=== PATIENT | male | born 1995 | race African-American/Black ===

== ENCOUNTER 2022-03-28 05:50 | Emergency (ER) | payer MEDICAID, SELFPAY ==
--- NOTE | ~2022-03-28 | XR_ITS ---
Indication: Trauma EXAMINATION: Single view pelvis, 2 views right hip, right knee., Cervical spine. Single pelvic image does not demonstrate evidence for fracture. 2 views the right hip does not demonstrate evidence for fracture or dislocation. 4 views of the right knee does not demonstrate acute fracture or dislocation. 4 views of the cervical spine demonstrate some straightening of the normal lordosis. No listhesis or compression injury is seen. No fracture line. XR/XR hip RT w PEL1V IMPRESSION: Multiple studies. No acute finding.
--- NOTE | ~2022-03-28 | XR_ITS ---
Indication: Trauma EXAMINATION: Single view pelvis, 2 views right hip, right knee., Cervical spine. Single pelvic image does not demonstrate evidence for fracture. 2 views the right hip does not demonstrate evidence for fracture or dislocation. 4 views of the right knee does not demonstrate acute fracture or dislocation. 4 views of the cervical spine demonstrate some straightening of the normal lordosis. No listhesis or compression injury is seen. No fracture line. XR/XR knee RT 4V IMPRESSION: Multiple studies. No acute finding.
--- NOTE | ~2022-03-28 | XR_ITS ---
Indication: Trauma EXAMINATION: Single view pelvis, 2 views right hip, right knee., Cervical spine. Single pelvic image does not demonstrate evidence for fracture. 2 views the right hip does not demonstrate evidence for fracture or dislocation. 4 views of the right knee does not demonstrate acute fracture or dislocation. 4 views of the cervical spine demonstrate some straightening of the normal lordosis. No listhesis or compression injury is seen. No fracture line. XR/XR cervical spine 3V IMPRESSION: Multiple studies. No acute finding.
[2022-03-28 05:56] VITALS: BP 104/54; BP 120/72; PULSE 72; PULSE 76; RESP 18; O2SAT 99; BMI 23.5
[2022-03-28 06:03] VITALS: BP 104/54; PULSE 76; RESP 18; O2SAT 99
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
[2022-03-28 07:23] VITALS: BP 107/59; PULSE 61; RESP 14; TEMP 36.9; O2SAT 98
== END 2022-03-28 08:14 | disposition home or self-care (01) ==
PROVIDERS: Emergency Provider Emergency Medicine
DX: S80.01XA Contusion of right knee, initial encounter (principal); S70.01XA Contusion of right hip, initial encounter; V13.4XXA Pedal cycle driver injured in collision with car, pick-up truck or van in traffic accident, initial encounter; Y93.55 Activity, bike riding; Y92.414 Local residential or business street as the place of occurrence of the external cause; Y99.9 Unspecified external cause status
CPT/HCPCS: 72040; 73502; 73564; 99283; 99284

== ENCOUNTER 2022-07-17 11:26 | Outpatient (REF) | payer MEDICAID, SELFPAY ==
--- NOTE | ~2022-07-17 | XR_ITS ---
EXAMINATION: XR CERVICAL SPINE CLINICAL INFORMATION: Pain in the neck since working out. COMPARISON: None available. TECHNIQUE: 5 views of the cervical spine were obtained. FINDINGS: There is mild straightening of cervical lordosis. The vertebral heights, alignment are normal. Is mild loss of C4-C5 disc height. Rest the disc heights are normal. The neural foramina are patent bilaterally and oblique views. No acute fracture or dislocation seen. The prevertebral soft tissues are normal. XR/XR cervical spine 4V IMPRESSION: 1. Mild degenerative disc changes C4-C5 disc level. No visible acute fracture or dislocation seen. 2. Mild straightening of cervical lordosis likely spasm.
== END 2022-07-17 11:27 | disposition home or self-care (01) ==
LOC: HO.HHCX 11:26
PROVIDERS: Visit Provider Emergency Medicine
DX: M54.2 Cervicalgia (principal)
CPT/HCPCS: 72050

== ENCOUNTER 2023-03-04 06:30 | Emergency (ER) | payer MEDICAID, SELFPAY ==
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
[2023-03-04 06:46] VITALS: BP 111/66; PULSE 86; RESP 18; TEMP 36; O2SAT 98; BMI 24.7
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
--- NOTE | 2023-03-04 08:08 | PC.NURSE ---
pt refused ibuprofen. I don't need it
== END 2023-03-04 10:12 | disposition home or self-care (01) ==
PROVIDERS: Emergency Provider Emergency Medicine
DX: S60.221A Contusion of right hand, initial encounter (principal); S40.012A Contusion of left shoulder, initial encounter; S70.02XA Contusion of left hip, initial encounter; M25.512 Pain in left shoulder; M79.641 Pain in right hand; V19.40XA Pedal cycle driver injured in collision with unspecified motor vehicles in traffic accident, initial encounter; Y93.9 Activity, unspecified; Y92.410 Unspecified street and highway as the place of occurrence of the external cause; Y99.9 Unspecified external cause status
CPT/HCPCS: 73030; 73130; 99283

== ENCOUNTER 2023-03-12 11:23 | Outpatient (REF) | payer MEDICAID, SELFPAY ==
--- NOTE | ~2023-03-12 | XR_ITS ---
EXAMINATION: XR HAND, RIGHT CLINICAL INFORMATION: Fall with right hand edema and pain COMPARISON: 03/04/2023 TECHNIQUE: PA, lateral, and oblique views of the right hand. FINDINGS: The bones and soft tissues are normal aside from the presence of some metallic appearing soft tissue foreign bodies in the third digit at the base of the middle phalanx laterally as well as at the DIP joint laterally, unchanged from prior. No new radiopaque foreign bodies. No fracture. Alignment is anatomic. Joint spaces are maintained. No erosions or soft tissue calcifications. XR/XR hand RT min 3V IMPRESSION: 1. No acute fractures or subluxations. 2. Unchanged metallic foreign bodies in the third digit.
== END 2023-03-12 11:24 | disposition home or self-care (01) ==
LOC: HO.HHCX 11:23
PROVIDERS: Visit Provider Internal Medicine
DX: S60.011D Contusion of right thumb without damage to nail, subsequent encounter (principal); W18.30XD Fall on same level, unspecified, subsequent encounter
CPT/HCPCS: 73130

== ENCOUNTER 2023-05-15 10:30 | Outpatient (RCR) | payer OTHER, SELFPAY ==
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
== END 2023-07-16 13:45 | disposition home or self-care (01) ==
LOC: HO.OT 10:30
PROVIDERS: PCP Internal Medicine; Visit Provider Internal Medicine
DX: S60.011D Contusion of right thumb without damage to nail, subsequent encounter (principal)
CPT/HCPCS: 29130; 97035; 97110; 97165; 97530; 97760

== ENCOUNTER 2023-06-24 10:00 | Outpatient (RCR) | payer OTHER, SELFPAY ==
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
--- NOTE | 2023-06-24 11:29 | MHC.PT.DC ---
[facility] [place] Office [place] Office [place] Office [address] Devaughn Jackson [address] [phone] F: [phone] F: [phone] F: [phone] F: [phone] Physical Therapy Discharge Report Diagnosis: L shoulder injury Date of Surgery: Date of Evaluation: 05/29/23 Date of Discharge: 06/24/23 Treatments to Date: 6 Cancellations to Date: No Shows to Date: Discharge Status: Achieved Goals Improved Function Independent with HEP Discharge Summary: Pt has met all goals in POC. Added prone periscap stabilization exercises lying over a physioball with recommendation to complete these in addition to standing pulleys to maximize shoulder stability. Pt required additional education to avoid exercises that cause discomfort or makes his shoulder feel unstable, pt in agreement. SPADI improved to 25 points: D/C score 41/130, IE score: 66/130D/C to HEP at this time, patient in agreement with D/C. Thank you for this referral. Electronically signed by: Suni Serrato PT, DPT Please sign and return to therapist. Thank you for your referral.
== END 2023-06-24 11:30 | disposition home or self-care (01) ==
LOC: HO.PT 10:00
PROVIDERS: PCP Internal Medicine; Visit Provider Internal Medicine
DX: S60.011D Contusion of right thumb without damage to nail, subsequent encounter (principal); S43.492D Other sprain of left shoulder joint, subsequent encounter
CPT/HCPCS: 97110; 97140; 97161; 97530

== ENCOUNTER 2023-07-11 22:50 | Emergency (ER) | payer MEDICAID, SELFPAY ==
--- NOTE | 2023-07-11 | ECG_ITS ---
Test Reason : CHEST PAIN Blood Pressure : / mmHG Vent. Rate : 055 BPM Atrial Rate : 055 BPM P-R Int : 140 ms QRS Dur : 102 ms QT Int : 390 ms P-R-T Axes : 054 063 022 degrees QTc Int : 373 ms Sinus bradycardia with sinus arrhythmia Otherwise normal ECG When compared with ECG of 19-JAN-2012 13:23, Inverted T waves have replaced nonspecific T wave abnormality in Inferior leads QT has shortened Referred By: Generic ED Physician Electronically Signed By:Tadeo Diop
[2023-07-11 23:02] VITALS: BP 116/69; PULSE 56; RESP 18; TEMP 36.8; O2SAT 98; BMI 23.0
[2023-07-11 23:07] LABS: MANUAL DIFF FLAG NO
[2023-07-11 23:08] LABS: Basophils Percent Auto 0.3 % (0-2); Eosinophils Absolute Auto 0.1 X10*3/uL (0.0-0.4); Eosinophils Percent Auto 1.1 % (0-4); Hematocrit 39.1 % (42.0-52.0); Hemoglobin 12.8 g/dl (14.0-18.0); Imm Gran Abs Auto 0.01 X10*3/uL (0.00-0.03); Imm Gran Pct Auto 0.1 % (0.0-0.4); Lymphocytes Absolute Auto 1.9 X10*3/uL (1.2-4.9); Lymphocytes Percent Auto 26.6 % (20-40); Mean Corpuscular HGB Conc 32.7 g/dl (31.0-36.0); Mean Corpuscular Hemoglobin 27.4 pg (27.0-33.0); Mean Corpuscular Volume 83.5 fL (80.0-98.0); Mean Platelet Volume 10.1 fL (9.4-12.4); Monocytes Absolute Auto 0.5 X10*3/uL (0.1-1.2); Monocytes Percent Auto 7.1 % (2-11); Neutrophils Absolute Auto 4.6 x10*3/uL (2.0-8.3); Neutrophils Percent Auto 64.8 % (45-73); Platelet Count 226 X10*3/uL (160-400); Red Blood Count 4.68 X10*6/uL (4.60-5.80); Red Cell Distribution Width 13.4 % (11.0-16.0)
[2023-07-11 23:14] LABS: INTERNATIONAL NORM RATIO 1.1 (0.9-1.1); Prothrombin Time 13.2 SEC (11.1-13.3)
[2023-07-11 23:22] LABS: Alanine Aminotransferase 10 U/L (0-40); Albumin Level 4.2 g/dL (3.5-5.0); Alkaline Phosphatase 69 U/L (39-117); Anion Gap 14 (12-20); Aspartate Amino Transferase 16 U/L (5-37); Bilirubin Total 0.4 mg/dL (0.0-1.0); Blood Urea Nitrogen 20 mg/dL (9-16); Calcium 9.2 mg/dL (8.4-10.2); Carbon Dioxide 23 mmol/L (22-29); Chloride 108 mmol/L (96-108); Creatinine Clr Calc Pharmacy 140.2; Estimated Glomerular Filt Rate > 60; Glucose Random 115 mg/dL (60-115); Potassium 4.3 mmol/L (3.3-5.1); Sodium 141 mmol/L (135-145); Total Protein 6.6 g/dL (6.5-8.0)
[2023-07-11 23:45] LABS: Troponin-I High Sensitivity < 2.7 ng/L (<3.5-35.0)
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
[2023-07-12 01:31] VITALS: BP 103/52; PULSE 46
[2023-07-12 01:32] VITALS: BP 113/59; PULSE 51
[2023-07-12 01:33] VITALS: BP 115/67; PULSE 52
[2023-07-12 02:27] VITALS: BP 115/67; PULSE 52; RESP 18; TEMP 36.8; O2SAT 98
== END 2023-07-12 02:10 | disposition home or self-care (01) ==
PROVIDERS: Emergency Provider Emergency Medicine; PCP Internal Medicine
DX: R07.89 Other chest pain (principal)
CPT/HCPCS: 36415; 80053; 84484; 85025; 85610; 93005; 99283

== ENCOUNTER → 2023-07-11 22:50 | Outpatient (BNV) | payer OTHER, SELFPAY | PROVIDERS: Emergency Provider Emergency Medicine; PCP Internal Medicine; Visit Provider Internal Medicine Cardiovascular Disease | DX: R07.9 Chest pain, unspecified (principal) | CPT/HCPCS: 93010 ==

== ENCOUNTER → 2023-09-26 11:12 | Outpatient (BNVA) | payer SELFPAY | PROVIDERS: PCP Internal Medicine; Visit Provider Physician Assistant | DX: S51.811A Laceration without foreign body of right forearm, initial encounter (principal); W25.XXXA Contact with sharp glass, initial encounter | CPT/HCPCS: 99203 ==

== ENCOUNTER → 2023-10-01 07:43 | Outpatient (BNVA) | payer OTHER, SELFPAY | PROVIDERS: PCP Internal Medicine; Visit Provider Physician Assistant Medical | DX: S51.811A Laceration without foreign body of right forearm, initial encounter (principal); W25.XXXA Contact with sharp glass, initial encounter | CPT/HCPCS: 99213 ==

== ENCOUNTER 2024-03-17 13:03 | Outpatient (REF) | payer OTHER, SELFPAY ==
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
--- OUTSIDE RECORDS SUMMARY | 2024-03-17 14:01 | XMS_ITS | Encounter Summary ---
Author Organization [employer] Address [address] [facility] 7 [place] [address] Care Team Providers Care Repairer Handtools Name Role Phone Shayla Castillo MD Primary Care Provider + Encounter Details Date Type Department Care Team ([facility] st Contact Info) Description 03/11/2023 Telephone [facility] MEDICINE [address] [place] [address] Shayla Castillo MD [address] [place] [address] Social History Tobacco Use Types Packs/Day Years [...] AM EDT documented as of this encounter Plan of Treatment Not on file documented as of this encounter Visit Diagnoses Not on filedocumented in this encounter Care Teams Repairer Handtools Relationship Specialty Start Date End Date Shayla Castillo MD [address] [place] [phone] PCP - General Family Medicine 10/16/18 documented as of this encounter
--- OUTSIDE RECORDS SUMMARY | 2024-03-17 14:01 | XMS_ITS | Encounter Summary ---
Author Organization [employer] Address [address] [facility] 7t [place] [address] Care Team Providers Care Precision Honing Machine Operator Name Role Phone Shayla Castillo MD Primary Care Provider + Encounter Details Date Type Department Care Team (Late st Contact Info) Description 03/17/2024 9:00 AM EST Office Visit [facility] [address] [place] [address] Karina Peterson MD [address] [place] [address] Swollen lymph nodes (Primary Dx); Upper respiratory tract infection, unspecified type Social History Tobacco Use Types Packs/Day Years [...] AM EDT documented as of this encounter Last Filed Vital Signs Vital Sign Reading [...] Mass Index 24.34 03/17/2024 9:16 AM EST documented in this encounter Progress Notes * Karina Peterson MD - 03/17/2024 9:00 AM EST Subjective Patient ID: Alistair Uriostegui is a 28 y.o. male with past medical history of low back pain anddepression who presents to walk in clinic for concern of lymph node. Pt reports he woke up and noticed he has a swollen lymph node in his neck. He denies any sore throat or cough. Pt does note he has been having rhinorrhea only at night the past couple nights. He reports he had all his vaccinations as a child. He reports fever this morning and feeling achy all over.Denies recent travel or sick contacts. Review of Systems Constitutional: Negative for fever and unexpected weight change. HENT: Positive for postnasal drip and rhinorrhea. Respiratory: Negative for shortness of breath. Cardiovascular: Negative for chest pain. Gastrointestinal: Negative for abdominal pain. Genitourinary: Negative for difficulty urinating. Objective Visit Vitals BP 126/70 (BP Location: Left arm, Patient Position: Sitting, BP Cuff Size: Adult) Pulse 97 Temp 99.1 ??F (37.3 ??C) (Oral) Resp 20 Body mass index is 24.34 kg/m??. Physical Exam Constitutional: Appearance: Normal appearance. HENT: Nose: Congestion and rhinorrhea present. Rhinorrhea is clear. Mouth/Throat: Mouth: Mucous membranes are moist. Dentition: Normal dentition. No gum lesions. Pharynx: Uvula midline. Postnasal drip present. No pharyngeal swelling or posterior oropharyngeal erythema. Cardiovascular: Rate and Rhythm: Normal rate and regular rhythm. Heart sounds: Normal heart sounds. Pulmonary: Effort: Pulmonary effort is normal. Breath sounds: Normal breath sounds. Abdominal: General: Abdomen is flat. Palpations: Abdomen is soft. Tenderness: There is no abdominal tenderness. Musculoskeletal: Cervical back: Normal range of motion and neck supple. Lymphadenopathy: Cervical: Cervical adenopathy (warm, tender, mobile, about 4cm) present. Left cervical: Superficial cervical adenopathy present. Skin: General: Skin is warm and dry. Comments: Feels feverish Neurological: Mental Status: He is alert. Mental status is at baseline. Psychiatric: Behavior: Behavior normal. Problem List Items Addressed This Visit Swollen lymph nodes - Primary Large, significant left cervical lymphadenopathy. Not deep. Very convincing for acute infection. Swabs negative, ordered viral panel to evaluate more extensively. -advised pt to return if lymph node stays swollen >1 week. Relevant Orders POCT Rapid Strep A MCCARTHY ID NOW (Completed) POCT Rapid Covid-19 BinaxNOW (Completed) POCT Rapid Influenza A MCCARTHY ID NOW POCT Rapid Influenza B MCCARTHY ID NOW Upper respiratory tract infection Covid, Flu and Strep negative. No evidence of respiratory distress. Symptoms moderate. No evidence of dehydration. Feels feverish on exam and significant swollen cervical lymphadenopathy that is concern for acute infection. -Ordered viral respiratory panel 03/17/24. Will call with results. -Supportive care advised. -Isolation recommendations discussed. -Recommended teas, honey with hot water and lemon and lots of fluids. Relevant Medications ibuprofen 800 MG tablet Other Relevant Orders Respiratory Viral Panel PCR -No evidence of acute disease process. Swabs negative. Suspect acute upper respiratory infection. Symptoms moderate. -Sent out viral respiratory panel. -ER precautions discussed. -Seek medical attention for worsening symptoms. I, Alicia Davey, am serving as a scribe to document services personally performed by Dr. Abreu, based on the patient's response to questions by provider and providers statements to me. documented in this encounter Miscellaneous Notes * Assessment & Plan Note - Alicia Davey - 03/17/2024 9:49 AM ESTAssociated Problem(s): Swollen lymph nodes Large, significant left cervical lymphadenopathy. Not deep. Very convincing for acute infection. Swabs negative, ordered viral panel to evaluate more extensively. -advised pt to return if lymph node stays swollen >1 week. * Assessment & Plan Note - Alicia Davey - 03/17/2024 9:47 AM ESTAssociated Problem(s): Upper respiratory tract infection Covid, Flu and Strep negative. No evidence of respiratory distress. Symptoms moderate. No evidence of dehydration. Feels feverish on exam and significant swollen cervical lymphadenopathy that is concern for acute infection. -Ordered viral respiratory panel 03/17/24. Will call with results. -Supportive care advised. -Isolation recommendations discussed. -Recommended teas, honey with hot water and lemon and lots of fluids. documented in this encounter Plan of Treatment Scheduled Orders Name Type Priority Associated Diagnoses Orde r Schedule Respiratory Viral Panel PCR Lab Routine Upper respiratory tract infection, unspecified type Ordered: 03/17/2024 documented as of this encounter Procedures Procedure Name Priority Date/Time Associated Diagnosis Comments POCT INFLUENZA B (ID NOW RAPID MOLECULAR) Routine 03/17/2024 9:56 AM EST Swollen lymph nodes POCT INFLUENZA A (ID NOW RAPID MOLECULAR) Routine 03/17/2024 9:55 AM EST Swollen lymph nodes POC MCCARTHY ID NOW STREP A Routine 03/17/2024 9:36 AM EST Swollen lymph nodes POCT RAPID COVID ANTIGEN Routine 03/17/2024 9:36 AM EST Swollen lymph nodes documented in this encounter Results * POCT Rapid Influenza B MCCARTHY ID NOW (03/17/2024 9:56 AM EST) Pathologist [facility] Influenza B Negative Negative, Indeterminate [facility] QC Media Lot # [id number] [facility] Lot# Expiration Date [facility] Swab 03/17/2024 9:56 AM EST Karina Peterson MD POINT OF CARE TEST ENTER/E DIT ORDERABLES Final Result Performing Organization Address City/[facility]/ZIP Co de Phone Number [facility] [address] [place] [phone] * POCT Rapid Influenza A MCCARTHY ID NOW (03/17/2024 9:55 AM EST) [facility] Influenza A Negative Negative, Indeterminate [facility] QC Media Lot # [id number] [facility] Lot# Expiration Date [facility] Swab 03/17/2024 9:55 AM EST Karina Peterson MD POINT OF CARE TEST ENTER/E DIT ORDERABLES Final Result Performing Organization Address City/[facility]/ZIP Co de Phone Number [facility] [address] [place] [phone] * POCT Rapid Covid-19 BinaxNOW (03/17/2024 9:36 AM EST) Rapid COVID Ag Negative QC Media Lot # [id number] Lot# Expiration Date ,132 Swab 03/17/2024 9:36 AM EST us Karina Peterson MD POINT OF CARE TEST ENTER/E DIT ORDERABLES Final Result * POCT Rapid Strep A MCCARTHY ID NOW (03/17/2024 9:36 AM EST) Rapid Strep A Screen Negative Negative, None Detected QC Media Lot # [id number] Lot# Expiration Date ,026 Swab 03/17/2024 9:36 AM EST us Karina Peterson MD POINT OF CARE TEST ENTER/E DIT ORDERABLES Final Result documented in this encounter Visit Diagnoses Diagnosis Swollen lymph nodes- Primary Enlargement of lymph nodes Upper respiratory tract infection, unspecified type documented in this encounter Additional Health Concerns Assessment Noted Time PHQ-9 Depression Total Score: 10 024 3:04 PM EST documented as of this encounter Care Teams Precision Honing Machine Operator Relationship Specialty Start Date End Date Shayla Castillo MD [address] [place] [phone] PCP - General Family Medicine 10/16/18 documented as of this encounter
[2024-03-17 15:04] LABS: Adenovirus PCR Not Detected (Not Detect.); Bordetella parapertussis PCR Not Detected (Not Detect.); Bordetella pertussis PCR Not Detected (Not Detect.); Chlamydia pneumoniae PCR Not Detected (Not Detect.); Coronavirus 229E PCR Not Detected (Not Detect.); Coronavirus HKU1 PCR Not Detected (Not Detect.); Coronavirus NL63 PCR Not Detected (Not Detect.); Coronavirus OC43 PCR Not Detected (Not Detect.); Human metapneumovirus PCR Not Detected (Not Detect.); Influenza A PCR Not Detected (Not Detect.); Influenza B PCR Not Detected (Not Detect.); Mycoplasma pneumoniae PCR Not Detected (Not Detect.); Parainfluenza 1 PCR Not Detected (Not Detect.); Parainfluenza 2 PCR Not Detected (Not Detect.); Parainfluenza 3 PCR Not Detected (Not Detect.); Parainfluenza 4 PCR Not Detected (Not Detect.); RSV PCR Not Detected (Not Detect.); Rhino/Enterovirus PCR Not Detected (Not Detect.)
[2024-03-17 15:11] LABS: SARS-CoV-2 PCR Not Detected (Not Detect.)
== END 2024-03-17 13:04 | disposition home or self-care (01) ==
LOC: HO.HHCLNP 13:03
PROVIDERS: Visit Provider Family Medicine
DX: J06.9 Acute upper respiratory infection, unspecified (principal)
CPT/HCPCS: 87633

== ENCOUNTER 2024-05-03 17:16 | Emergency (ER) | payer MEDICAID, SELFPAY ==
--- NOTE | ~2024-05-03 | XR_ITS ---
CLINICAL HISTORY: pain s p injury 3 view left ankle Comparison: None Findings: No acute fractures or dislocations. No significant loss of joint space, osteophytes, or erosions. No ankle effusion. Mild soft tissue edema laterally. No radiopaque foreign body. IMPRESSION: Mild soft tissue edema without evidence of fracture This document has been electronically signed by: Nadeem العلي MD on 05/03/2024 18:50:53
--- NOTE | 2024-05-03 17:32 | ED_ITS ---
HPI - Extremity Injury (Lower) General Chief Complaint: Extremity Injury, Lower Stated Complaint: lft ankle injury [facility] Time Seen by Provider: 05/03/24 18:26 Source: patient Mode of arrival: wheelchair Limitations: no limitations History of Present Illness ED Provider: Panchito Lomeli PA-C HPI Narrative: 28 yo male presents to the ER for evaluation of left lateral ankle pain and sw elling after he landed wrong 1 hour ago while at the [facility] in the mall. unable to ambulate since. no foot pain he reports pain is in the outside portion of the ankle, worse with movement, pa lpation and weight bearing. flavoring oil filterer came to evaluate him but he declined transport and drove here. complaint: ankle injury Onset (ago): minute(s) Type of Injury: inversion Place: other ([facility]) Severity: severe Relieving factors: immobilization Exacerbating factors: weight bearing, movement and palpation Context: jumping Associated symptoms: unable to bear weight Other symptoms: none Related Data Previous Rx's ?Medication ?Instructions ?Recorded ibuprofen 600 mg tablet 600 mg PO Q8H PRN fever or pain 05/03/24 #10 tabs Allergies Allergy/AdvReac Type Severity Reaction Status Date / Time methylphenidate AdvReac Unknown Verified 05/03/24 17:35 [From [employer]] Review of Systems Review of Systems: Yes all other systems are reviewed and are negative [facility] Past Medical History Surgical History History of tonsillectomy Social History Social History Alcohol intake: never Advance Directives: No Advance Directives Information Provided: No Physical Exam Vital Signs: Vital Signs: Last Vital Signs Temp 97.7 F 05/03/24 17:33 Pulse 76 05/03/24 17:33 Resp 16 05/03/24 17:33 BP 113/46 L 05/03/24 17:33 Pulse Ox 100 05/03/24 17:33 O2 Del Method Room Air 05/03/24 17:33 BMI result Body Mass Index 22.7 Appearance: Alert. Oriented X3. No acute distress. HEENT: normal inspection CVS: Normal heart rate and rhythm. Pulses normal. Respiratory: No respiratory distress. Skin: Skin warm and dry. Normal skin color. Normal skin turgor. No rashes. Extremities: left lateral ankle with mild swelling, pain with dorsiflexion and plantarflexsion. nontender foot. nontender anterior gill, no calf tenderness. no medial ankle tenderness Neuro: Oriented X 3. NV intact in the left foot Medical Decision Making Medical Decision Making MDM Narrative: 28 yo male presenting to the ER for evaluation of left ankle pain after he injured it while jumping at the [employer] park today no gross deformity. unale to ambulate XR without acute fracture will treat for sprain with blanka wrap, R.I.C.E, NSAID, crutches - outpatient follow up PRN. stable for d/c home Differential Diagnosis Differential Diagnoses: The differential diagnosis associated with the presentation includes ankle sprain, ankle fracture, ankle contusion, foot sprain, foot fracture Independent Interpretation I performed an independent interpretation of an: Plain X-Ray Interpretation: no appreciated fracture in the ankle or foot Radiology Impression Discussion of test interpretation with radiology: I have reviewed the radiologist's reading. External Record Review External record reviewed: Prior outpatient labs Prescription Management I considered prescription management with: Pain Medication Critical Care Time Critical Care Time Critical Care Time: No Discharge Plan Discharge Clinical Impression: Ankle sprain and strain Patient Disposition: Home, Self-Care Instructions: Ankle Sprain (DC) Additional Instructions: Your x-ray today did not show any broken bones. Rest your ankle and elevate your foot when possible. Recommend BLANKA wrap for support and compression. Use ice several times per day for the next 48 hours. You may bear weight as tolerated. If pain is too severe, use crutches until better. Take Motrin and/or Tylenol as needed for pain. Follow up with your doctor as needed. If no improvement in 2 weeks, follow up with Orthopedics for further evaluation and treatment. Prescriptions: New ibuprofen 600 mg tablet 600 mg PO Q8H PRN (Reason: fever or pain) Qty: 10 0RF Referrals: [facility] Orthopedic Surgeons [Provider Group] Shayla Castillo MD [Primary Care Provider] - Stand Alone Forms: Work/School Release Print Language: Belarusian
[2024-05-03 17:33] VITALS: BP 113/46; PULSE 76; RESP 16; TEMP 36.5; O2SAT 100; BMI 22.7
[2024-05-03 19:18] VITALS: BP 109/59; PULSE 65; RESP 18; TEMP 36.7; O2SAT 100
--- NOTE | 2024-05-03 19:20 | MHC.EDTECH ---
This tech took over care of pt at 1900,rounded and introduced self to patient,ha wrap applied to left ankle,pt tolerated well,previous tech gave pt crutches,vitals taken, pt is waiting for discharge at this time,pt appears comfortable,call cruz in reach
--- NOTE | 2024-05-03 19:31 | MHC.EDTECH ---
This tech took over care of pt at 1900,rounded and introduced self to pt,vitals taken,oral temp 99.9,RN aware, pt is waiting to be discharged at this time,call cruz in reach
[2024-05-03 19:36] VITALS: BP 109/59; PULSE 65; RESP 18; TEMP 36.7; O2SAT 100
== END 2024-05-03 19:36 | disposition home or self-care (01) ==
PROVIDERS: Emergency Provider Emergency Medicine; PCP Internal Medicine
DX: S93.402A Sprain of unspecified ligament of left ankle, initial encounter (principal); S96.912A Strain of unspecified muscle and tendon at ankle and foot level, left foot, initial encounter; X50.1XXA Overexertion from prolonged static or awkward postures, initial encounter; Y93.44 Activity, trampolining; Y92.39 Other specified sports and athletic area as the place of occurrence of the external cause; Y99.9 Unspecified external cause status
CPT/HCPCS: 73610; 99283

== ENCOUNTER → 2024-05-03 17:32 | Outpatient (BNV) | payer MEDICAID, SELFPAY | PROVIDERS: Emergency Provider Emergency Medicine; PCP Internal Medicine; Visit Provider Radiology Vascular & Interventional Radiology | DX: M25.572 Pain in left ankle and joints of left foot (principal) | CPT/HCPCS: 73610 ==

== ENCOUNTER 2024-05-21 15:02 | Outpatient (AMB) | payer MEDICAID, SELFPAY ==
--- NOTE | 2024-05-21 15:03 | MHC.OFFVIS ---
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 Patient was at a trampoline park with his daughter and he went on a hike the day after and he felt his ankle roll and caused him a lot of pain. Patient was on crutches for 4 days and after he started movement. He is getting better but he gets flair ups of pain when he works. Patient has tried turmeric curcumin capsules for the inflammation which gave him relief. 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 He reports that he went on a long hike a few days prior to the injury and feels like his ankle was fatigued. While at a [employer] park on May 03, 2024, he sustained an inversion injury resulting in pain on the lateral side of the ankle, which was aggravated by weightbearing and palpation, consequently limiting his ability to bear weight. Initial management in the emergency department involved negative X-ray findings for acute fractures or dislocations, and an Santosh wrap was provided. In the days following, the patient reported ongoing soreness and fatigue, with pain intensifying after prolonged periods on his feet, and notable swelling at work. The discomfort is localized along the bone of the left ankle, with pressure exacerbating the condition, particularly toward the anterior aspect of the joint during heavy stepping, while showing some reduction during rest. 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 Patient is able to demonstrate dorsiflexion, plantar flexion, pronation and supination. Negative anterior drawer. Sensation intact. Pedal Pulse intact. Assessment & Plan Assessment & Plan (1) Left ankle sprain: Code(s): S93.402A - Sprain of unspecified ligament of left ankle, initial encounter Category: Medical Plan The treatment plan for the left ankle sprain includes the introduction of a lace-up ankle brace to stabilize the joint during activities and mitigate recurrent inversion injuries. A structured physical therapy regimen will concentrate on strengthening stabilization and proprioception to aid recovery. The patient's high activity level and history of ankle injuries suggest a personalized rehabilitation strategy, prompting a follow-up in six weeks to evaluate therapeutic outcomes. The patient is informed about the variable nature of swelling during recovery and the critical role of pain management, alongside resting and elevating when necessary. 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 Progress will be monitored with instructions to query any concerning developments. X-rays of the left ankle which were obtained on 05/03/2024 that were obtained in the ED were reviewed by me, Jordana Hunt PA-C, and demonstrated no acute fracture dislocation. Patient was informed and verbally consented to the use of an ambient scribe for clinic note documentation during this visit. Orders: Orders PT Evaluation and Treatment 05/21/24 S93.402A - Sprain of unspecified ligament of left ankle, initial encounter Coding Level of Care Code New Pt Level 3 (91796) Diagnoses Left ankle sprain S93.402A
--- OUTSIDE RECORDS SUMMARY | 2024-05-21 16:35 | XMS_ITS | Encounter Summary ---
Author Organization [employer] Address [address] [facility] 7 [place] [address] Care Team Providers Care Network Support Engineer Name Role Phone Shayla Castillo MD Primary Care Provider + Encounter Details Date Type Department Care Team ([facility] st Contact Info) Description 03/11/2023 Telephone [facility] MEDICINE [address] [place] [address] Shayla Castillo MD [address] [place] [address] Social History Tobacco Use Types Packs/Day Years [...] on filedocumented in this encounter Care Teams Network Support Engineer Relationship Specialty Start Date End Date Shayla Castillo MD [address] [place] [phone] PCP - General Family Medicine 10/16/18 documented as of this encounter
--- OUTSIDE RECORDS SUMMARY | 2024-05-21 16:35 | XMS_ITS | Clinical Summary ---
Author Organization [employer] Address [address] [place] [address] 7t [place] [address] Care Team Providers Care Legal Office Administrator Name Role Phone Shayla Castillo MD Primary Care Provider + Allergies Active Allergy Reactions Criticality Noted Date Comments Methylphenidate 12/23/2019 Other reaction(s): Weight loss Medications * This document contains information received from the source organization and may not represent a complete record from that organization. acetaminophen (Tylenol Extra Strength) 500 MG tabletIndicatio ns:COVID-19 Take 1 or 2 tablets by mouth every 8 hours as needed for fever or pain 30 tablet 09/10/2022 Active cyclobenzaprine (Flexeril) 10 MG tablet Take 1 tablet (10 mg) by mouth 2 times daily for 10 days. 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 Reports being sober for more than 3y now, not on nay opiate replacement rx. FU prn Encounters Date Type Department Care Team Description 05/04/2024 Telephone [facility] [address] [place] [address] Rosanna Sunshine, RN Results 05/03/2024 Orders Only [facility] External Provider, [facility] 03/17/2024 9:00 AM EST Office Visit [facility] [address] [place] [address] Karina Peterson MD Swollen lymph nodes (Primary Dx); Upper respiratory tract infection, unspecified type 03/17/2024 Telephone [facility] [address] [place] [address] Karina Peterson MD from Last 3 Months Immunizations Name Administration [...] the past 12 months, has t he [employer], gas, oil or water company threatened to [...] 5 Years) and At-Risk Patients (6 to 49) Years) Aged Out No longer eligible based on patient's age to complete this topic RSV under 20 months Aged Out No longe r eligible based on patient's age to complete this topic Rotavirus Vaccines Aged Out No longer eligible based on patient's age to complete this topic Procedures Procedure Name Priority Date/Time Associated Diagnosis Comments XR ANKLE 3+ VIEWS LEFT Routine 05/03/2024 6:50 PM EDT POCT INFLUENZA B (ID NOW RAPID MOLECULAR) Routine 03/17/2024 9:56 AM EST Swollen lymph nodes POCT INFLUENZA A (ID NOW RAPID MOLECULAR) Routine 03/17/2024 9:55 AM EST Swollen lymph nodes RESPIRATORY VIRAL PANEL PCR Routine 03/17/2024 9:49 AM EST Upper respiratory tract infection, unspecified type POCT RAPID COVID ANTIGEN Routine 03/17/2024 9:36 [...] Recently Relevant to Health Maintenance Results * XR Ankle 3+ Views Left (05/03/2024 6:50 PM EDT) Anatomical Region Laterality Modality Lower Extremities, Ankle Left Radiogr aphic Imaging 05/03/2024 6:50 PM EDT Narrative 05/03/2024 6:52 PM EDT ? [facility] ?[address] ?[place] [address] ?XRay Report ? Signed ? Patient: Alistair Uriostegui Jr ?MR#: ?? [id number] ? : 1995 ?Acct:[id number] ? Age/Sex: 28 / M ?ADM Date: 05/03/24 ? Loc: HO.ED ? Attending Dr: ? Ordering Physician: Halley Lomeli ?? Date of Service: 05/03/24 ?? Procedure(s): XR ankle LT min 3V ?? Accession Number(s): [id number] ? cc: Shayla Castillo MD; Halley Lomeli ? CLINICAL HISTORY: pain s p injury ? 3 view left ankle ? Comparison: None ? Findings: ?? No acute fractures or dislocations. ?? No significant loss of joint space, osteophytes, or erosions. ?? No ankle effusion. Mild soft tissue edema laterally. ?? No radiopaque foreign body. ? IMPRESSION: ?? Mild soft tissue edema without evidence of fracture ? This document has been electronically signed by: Nadeem العلي MD on ?? 05/03/2024 18:50:53 ? Dictated By: ?Nadeem العلي MD ? Signed By: ?<Electronically signed by Nadeem العلي MD in OV> ? 05/03/24 1851 ? DD/ 1850 ? TD/TT: 05/03/241849 ? Payroll Consultant: ? Procedure Note Rivera, Nicki - 05/03/[address] [address] XRay Report Signed Patient: Alistair Uriostegui MR#: [id number] : 1995Acct:[id number] Age/Sex: 28 / MADM Date: 05/03/24 Loc: HO.ED Attending Dr: Ordering Physician: Halley Lomeli Date of Service: 05/03/24 Procedure(s): XR ankle LT min 3V Accession Number(s): [id number] cc: Shayla Castillo MD; Halley Lomeli CLINICAL HISTORY: pain s p injury 3 view left ankle Comparison: None Findings: No acute fractures or dislocations. No significant loss of joint space, osteophytes, or erosions. No ankle effusion. Mild soft tissue edema laterally. No radiopaque foreign body. IMPRESSION: Mild soft tissue edema without evidence of fracture This document has been electronically signed by: Nadeem العلي MD on 05/03/2024 18:50:53 Dictated By: Nadeem العلي MD Signed By: <Electronically signed by Nadeem العلي MD in OV> 05/03/241850 DD/ 49 TD/TT: 05/03/241849 Payroll Consultant: [facility] External Provider IMG XR PROCEDURES Final Result * POCT Rapid Influenza B MCCARTHY ID NOW (03/17/2024 9:56 AM EST) Influenza B Negative Negative, Indeterminate [facility] QC Media Lot # [id number] [facility] Lot# Expiration Date 328,026 [facility] Swab 03/17/2024 9:56 AM EST Karina Peterson MD POINT OF CARE TEST ENTER/E DIT ORDERABLES Final Result Performing Organization Address City/Va Hospital/ZIP Co de Phone Number [facility] [address] [place] [address] [phone] * POCT Rapid Influenza A MCCARTHY ID NOW (03/17/2024 9:55 AM EST) Influenza A Negative Negative, Indeterminate [facility] QC Media Lot # [id number] [facility] Lot# Expiration Date [id number] [facility] Swab 03/17/2024 9:55 AM EST Karina Peterson MD POINT OF CARE TEST ENTER/E DIT ORDERABLES Final Result Performing Organization Address [facility]/Va Hospital/ZIP Co de Phone Number [facility] [address] [place] [address] [phone] * Respiratory Viral Panel PCR (03/17/2024 9:49 AM EST) [facility] Adenovirus PCR Not Detected Not Detect. [facility] Bordetella pertussis PCR Not Detected Not Detect. [facility] Comment:Interpret results wi th caution. If B. pertussis isspecifically suspected, additional testing using analternate method is recommended. Bordetella parapertussis PCR Not Detected Not Detect. [facility] Chlamydia pneumoniae PCR Not Detected Not Detect. [facility] Coronavirus 229E PCR Not Detected Not Detect. [facility] Coronavirus HKU1 PCR Not Detected Not Detect. [facility] Coronavirus NL63 PCR Not Detected Not Detect. [facility] Coronavirus OC43 PCR Not Detected Not Detect. [facility] SARS-CoV-2 PCR Not Detected Not Detect. [facility] Comment:SARS-CoV-2 not detec jyoti by real-time RT-PCR.Note: If clinical suspicion for Sars-CoV-2 is high, continueto maintain precautions and consider repeat testing.Test results should be interpreted in the context ofclinical findings and other laboratory data.Rare polymorphisms exist that could lead to false-negativeor false-positive results. If results do not match theclinical findings, additional testing should be considered.Results reported to REBE[facility] CASTORENA.This test has been authorized by the FDA under the EmergencyUse Authorization (EUA) for use by authorized laboratories. Influenza A PCR Not Detected Not Detect. [facility] Influenza B PCR Not Detected Not Detect. [facility] Human metapneumovirus PCR Not Detected Not Detect. [facility] Rhino/Enterovirus PCR Not Detected Not Detect. [facility] Mycoplasma pneumoniae PCR Not Detected Not Detect. [facility] Parainfluenza 1 PCR Not Detected Not Detect. [facility] Parainfluenza 2 PCR Not Detected Not Detect. [facility] Parainfluenza 3 PCR Not Detected Not Detect. [facility] Parainfluenza 4 PCR Not Detected Not Detect. [facility] RSV PCR Not Detected Not Detect. [facility] Resp Panel NA Note See Note H [facility] Comment:All results must be correlated with clinical findings.Negative results should not be used as the sole basis fordiagnosis, treatment, or other management decisions.A negative result does not exclude the possibility of viralor bacterial infection. Negative results may occur from thepresence of sequence variants in the region targeted by theassay, the presence of inhibitors, an infection caused by anorganism not detected by the panel, or lower respiratorytract infections that are not detected by a nasopharyngealswab specimen. Test results may also be affected byconcurrent antiviral/antibacterial therapy or levels oforganism in the specimen that are below the limit ofdetection for this test.This assay is performed by Multiplexed PCR, utilizing Drawn to Scale Film Array. Swab 03/17/2024 9:49 AM EST 03/17/2024 1:05 PM EST us Karina Peterson MD LAB BLOOD ORDERABLES Final Result [facility] [address] [place] [address] [phone] * POCT Rapid Strep A MCCARTHY ID NOW (03/17/2024 9:36 AM EST) [facility] Rapid Strep A Screen Negative Negative, None Detected QC Media Lot # [id number] Lot# Expiration Date Swab 03/17/2024 9:36 AM EST Karina Peterson MD POINT OF CARE TEST ENTER/E DIT ORDERABLES Final Result * POCT Rapid Covid-19 BinaxNOW (03/17/2024 9:36 AM EST) [facility] Rapid COVID Ag Negative QC Media Lot # [id number] Lot# Expiration Date 7,026 Swab 03/17/2024 9:36 AM EST Karina Peterson MD POINT OF CARE TEST ENTER/E DIT ORDERABLES Final Result * (ABNORMAL) Hepatitis Panel, General (06/08/2022 9:37 AM EDT) [facility] Hepatitis A Antibody Total REACTIVE( A) NON-REACT JULIA [facility] [place] [employer] Comment: For additional information, please refer to http://[employer].codesy/faq/AAR886 (This link is being provided for informational/ educational purposes only.) Hepatitis B Surface Antibody QL NON-REACT JULIA NON-REACT JULIA [facility] Hepatitis B Surface Ag NON-REACT JULIA NON-REACT JULIA [facility] Hepatitis B Core Antibody Total NON-REACT JULIA NON-REACT JULIA [facility] Hepatitis C Antibody NON-REACT JULIA NON-REACT JULIA [facility] Index 0.05 <1.00 [facility] [place] [employer] Comment: HCV antibody was non-reactive. There is no laboratory evidence of HCV infection. In most cases, no further action is required. However, if recent HCV exposure is suspected, a test for HCV RNA (test code 80492) is suggested. For additional information please refer to http://[employer].codesy/faq/BRR54m9 (This link is being provided for informational/ educational purposes only.) 06/08/2022 9:37 AM EDT 06/08/2022 9:38 AM EDT Narrative [facility] - 06/13/2022 11:37 PM EDT FASTING:NO FASTING: NO Shayla Castillo MD LAB BLOOD ORDERABLES Fin al Result [facility] [address], [facility] [address] [facility] [address] [place] [address] * HIV-1/2 Antigen and Antibodies, Fourth Generation, with Reflexes (06/08/2022 9:37 AM EDT) [facility] HIV Antigen/Antibody, 4th Generation NON-REAC TIVE NON-REAC TIVE Events [facility] [place] [employer] Comment: HIV-1 antigen and HIV-1/HIV-2 antibodies were [...] ?? For additional information please refer to http://education.[employer].Muse/faq/TWM852 (This link is being provided for informational/ educational purposes only.) The performance of this assay has not been clinically validated in patients less than 2 years old. Blood Venous blood specimen / Unknown 06/08/2022 9:37 AM EDT 06/08/2022 9:38 AM EDT Narrative [facility] - 06/13/2022 11:37 PM EDT FASTING:NO FASTING: NO Shayla Castillo MD LAB BLOOD ORDERABLES Fin al Result [facility] [address], [place] [address] [facility] [address] [place] [address] from Last 3 Months or Most Recently Relevant to Health Maintenance Insurance [facility] Care Teams Legal Office Administrator Relationship Specialty Start Date End Date Shayla Castillo MD [address] [place] [address] PCP - General Family Medicine 10/16/18
== END 2024-05-21 15:49 | disposition home or self-care (01) ==
LOC: HO.HOS 15:02
PROVIDERS: PCP Internal Medicine; Visit Provider Physician Assistant
DX: S93.402A Sprain of unspecified ligament of left ankle, initial encounter (principal)
CPT/HCPCS: 99203

== ENCOUNTER → 2024-05-21 15:02 | Outpatient (BNVA) | payer MEDICAID, SELFPAY | PROVIDERS: PCP Internal Medicine; Visit Provider Physician Assistant | DX: S93.402A Sprain of unspecified ligament of left ankle, initial encounter (principal); X58.XXXA Exposure to other specified factors, initial encounter; Y93.44 Activity, trampolining; Y92.89 Other specified places as the place of occurrence of the external cause; Y99.9 Unspecified external cause status | CPT/HCPCS: 99212 ==

== ENCOUNTER 2024-07-02 15:03 | Outpatient (AMB) | payer MEDICAID, SELFPAY ==
--- NOTE | 2024-07-02 15:04 | MHC.OFFVIS ---
Intake Visit Reasons: O/V LT Ankle sprain & strain,DOI 05/03/24 Intake Note: Alistair is a 29 year old male who presents today as a new patient for a evaluation of his left ankle pain, DOI 05/03/24. At his last visit he was given a lace up ankle brace and referred to physical therapy. Patient reports he is doing well, and he is in a supported shoe. Allergies methylphenidate [From Concerta] Adverse Reaction (Verified 07/02/24 15:09) Unknown HPI HPI O/V LT Ankle sprain & strain,DOI 05/03/24: Details: Mr. Uriostegui is a 29-year-old male who presents to the office today for routine follow-up status post left ankle sprain on 05/03/2024. He has been attending physical therapy. He feels as though the ankle has improved. He does still have some pain with deep squatting and pain at the extremes of motion. Overall he is doing very well. 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 Patient is walking without an antalgic gait. NVI. Assessment & Plan Assessment & Plan (1) Left ankle sprain: Code(s): S93.402A - Sprain of unspecified ligament of left ankle, initial encounter Category: Medical Plan Mr. Uriostegui is a 29-year-old male who presents to the office today for routine follow-up status post left ankle sprain on 05/03/2024. He has been attending physical therapy. He feels as though the ankle has improved. He does still have some pain with deep squatting and pain at the extremes of motion. Overall he is doing very well. All the office today, we discussed continuation of physical therapy program until all sessions have been complete. He will wear the lace-up ankle brace that was provided to him at the last appointment during activities as needed. He will resume back to normal activities as tolerated using pain as his guide. He will follow up with Orthopedics p.r.n., sooner if needed. Coding Level of Care Code Est Pt Level 3 (66567) Diagnoses Left ankle sprain S93.402A
--- OUTSIDE RECORDS SUMMARY | 2024-07-02 15:43 | XMS_ITS | Encounter Summary ---
Author Organization [employer] Address [address] [facility] 7t [place] [address] Care Team Providers Care Auto Specialty Services Manager Name Role Phone Shayla Castillo MD Primary Care Provider + Encounter Details Date Type Department Care Team ([facility] st Contact Info) Description 03/11/2023 Telephone [facility] [address] [place], [place] [phone] Shayla Castillo MD [address] [place] [address] Social History Tobacco Use Types Packs/Day Years [...] the past 12 months, has t he [employer], [employer], oil or water company threatened to shut [...] on filedocumented in this encounter Care Teams Auto Specialty Services Manager Relationship Specialty Start Date End Date Shayla Castillo MD [address] [place] [address] PCP - General Family Medicine 10/16/18 documented as of this encounter
--- OUTSIDE RECORDS SUMMARY | 2024-07-02 15:43 | XMS_ITS | Clinical Summary ---
Author Organization [employer] Address [address] [place] [address] 7t [place] [address] Care Team Providers Care Attacher Name Role Phone Shayla Csatillo MD Primary Care Provider + Allergies Active [...] Type Department Care Team Description 05/04/2024 Telephone [facility] [address] [place] [address] Rosanna Sunshine, RN Results 05/03/2024 Orders Only [facility] External Provider, [facility] from Last 3 Months Immunizations Immunization Administration Dates Next Due DTaP 09/20/1997, 5,01/18/1994,10/19,1993 [...] Additional history exists SDOH Screening 05/17/2023 05/16/2022 COVID-19 Vaccine ( season) 2023 Influenza Vaccine [...] 12/24/2019 Hepatitis C Screening Completed 06/08/2022, 020 Meningococcal B Vaccine Aged Out No l onger eligible based on patient's age to complete this topic Pneumococcal Vaccine: Pediatrics (0 to 5 Years) [...] VIEWS LEFT Routine 05/03/2024 6:50 PM EDT HEPATITIS PANEL, GENERAL Routine 06/08/2022 9:37 AM [...] EDT Narrative 05/03/2024 6:52 PM EDT ? [facility] [facility] ?[address] ?[place] [address] ?XRay Report ? Signed ? Patient: Moody,Alistair Jr ?MR#: ?? [id number] ? : 1995 ?Acct:[id number] ? Age/Sex: 28 / M ?ADM Date: 05/03/24 ? Loc: HO.ED ? Attending Dr: ? Ordering Physician: Halley Lomeli ?? Date of Service: 05/03/24 ?? Procedure(s): XR ankle LT min 3V ?? Accession Number(s): [id number] ? cc: Shayla Castillo MD; Halley Lomeli [...] 05/03/24 1851 ? DD/ 1850 ? TD/TT: 05/03/24 1850 ? [employer] Mounter: ? Procedure Note Rivera, Image - 05/03/2024 [place] [address] XRay Report Signed Patient: Alistair Uriostegui [facility]#: [id number] : 1995Acct:[id number] Age/Sex: 28 / MADM Date: 05/03/24 Loc: HO.ED Attending Dr: Ordering Physician: Halley Lomeli Date of Service: 05/03/24 Procedure(s): XR ankle LT min 3V Accession Number(s): [id number] cc: Shayla Castillo MD; Halley Lomeli CLINICAL [...] in OV> 05/03/241850 DD/ 49 TD/TT: 05/03/241849 [employer] Mounter: [facility] External Provider IMG XR PROCEDURES Final Result * (ABNORMAL) Hepatitis Panel, General (06/08/2022 9:37 AM EDT) Hepatitis A Antibody Total REACTIVE( A) NON-REACT JULIA [employer] [place] [employer] Comment: For additional information, please refer to http://[employer].awe.sm/faq/TGE398 (This link is being provided for informational/ educational purposes only.) Hepatitis B Surface Antibody QL NON-REACT JULIA NON-REACT JULIA [facility] Hepatitis B Surface Ag NON-REACT JULIA NON-REACT JULIA [facility] [facility] Hepatitis B Core Antibody Total NON-REACT JULIA NON-REACT JULIA [facility] [facility] Hepatitis C Antibody NON-REACT JULIA NON-REACT JULIA [employer] [place] [employer] Index 0.05 <1.00 [employer] [place] [employer] Comment: HCV antibody was non-reactive. There is no laboratory evidence of HCV infection. In most cases, no further action is required. However, if recent HCV exposure is suspected, a test for HCV RNA (test code 52110) is suggested. For additional information please refer to http://[employer].awe.sm/faq/WHB13t6 (This link is being provided for informational/ educational purposes only.) 06/08/2022 9:37 AM EDT 06/08/2022 9:38 AM EDT Narrative [facility] - 06/13/2022 11:37 PM EDT FASTING:NO FASTING: NO Shayla Castillo MD LAB BLOOD ORDERABLES Fin al Result [facility] [address], [place] [address] [employer] [place] [employer] [address] [place] [address] * HIV-1/2 Antigen and Antibodies, Fourth Generation, with Reflexes (06/08/2022 9:37 AM EDT) HIV Antigen/Antibody, 4th Generation NON-REAC TIVE NON-REAC TIVE [employer] [place] [employer] Comment: HIV-1 antigen and HIV-1/HIV-2 antibodies [...] ?? For additional information please refer to http://education.awe.sm/faq/ERM367 (This link is being provided for informational/ educational purposes only.) The performance of this assay has not been clinically validated in patients less than 2 years old. Blood Venous blood specimen / Unknown 06/08/2022 9:37 AM EDT 06/08/2022 9:38 AM EDT Narrative [facility] - 06/13/2022 11:37 PM EDT FASTING:NO FASTING: NO Shayla Castillo MD LAB BLOOD ORDERABLES Fin al Result [facility] [address], [place] [address] [employer] [place] [employer] [address] [place] [address] from Last 3 Months or Most Recently Relevant to Health Maintenance [place] [place] [address] [employer] Care Teams Attacher Relationship Specialty Start Date End Date Shayla Castillo MD [address] [place] [address] PCP - General Family Medicine 10/16/18
--- OUTSIDE RECORDS SUMMARY | 2024-07-02 15:43 | XMS_ITS | Encounter Summary ---
Author Organization [employer] Address [address] [place] [address] [address] [place] [address] Care Team Providers Care Wholesale Account Manager Name Role Phone Shayla Castillo MD Primary Care Provider + Reason for Visit * Reason Onset Date Comments Nurse Triage 03/11/2023 Encounter Details Date Type Department Care Team ([facility] st Contact Info) Description 03/11/2023 Telephone [facility] MEDICINE [address] [place] [address] Shayla Castillo MD [address] [place] [address] Nurse Triage Social History Tobacco Use Types [...] on filedocumented in this encounter Care Teams Wholesale Account Manager Relationship Specialty Start Date End Date Shayla Castillo MD [address] [place] [id number] PCP - General Family Medicine 10/16/18 documented as of this encounter
== END 2024-07-02 15:14 | disposition home or self-care (01) ==
LOC: HO.HOS 15:04
PROVIDERS: PCP Internal Medicine; Visit Provider Physician Assistant
DX: S93.402A Sprain of unspecified ligament of left ankle, initial encounter (principal)
CPT/HCPCS: 99213

== ENCOUNTER → 2024-07-02 15:03 | Outpatient (BNVA) | payer MEDICAID, SELFPAY | PROVIDERS: PCP Internal Medicine; Visit Provider Physician Assistant | DX: S93.402D Sprain of unspecified ligament of left ankle, subsequent encounter (principal) | CPT/HCPCS: 99212 ==

== ENCOUNTER 2024-08-28 14:00 | Outpatient (RCR) | payer OTHER, SELFPAY ==
--- NOTE | 2024-06-22 07:43 | MHC.PT.EP ---
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 OBJECTIVE FINDINGS: DECR FLEXIB IN Lt LE, TTP Lt PERONEAL RETINACULAR AREA/ CALCANEOFIB LIG/ ANT TALOFIB LIG; (+) EDEMA Lt LAT MALL, DECR ANKLE AROM EVER/DF, PAIN END RANGE INVER/ PF, ABLE TO SLS W INCR EFFORT Lt LE, AND FLUCTUATING SXS DEPENDING ON ACTIVITY. FUNCTIONALLY, THE Pt HAS DECR FUNCT SQUAT RANGE AND HAS DECR LAWRENCE TO REG PHYS DEMANDING ADLS/ WORK TASKS- HE HAS BEEN UNABLE TO RESUME HIS FITNESS ROUTINE/ HIKING, ETC DUE TO SXS Lt LAT ANKLE. WE DISCUSSED PT POC AN THE Pt IS AGREEABLE AND READY TO ADDRESS HIS ULTIMATE GOAL OF RETURNING TO HIS EXER/ HIKING/ LIVING LIFE W/O THE CURRENT Lt ANKLE PAIN. Frequency and Duration: The patient will be seen 2 WK x 5 WKS Short Term Goals: * DECR Lt ANKEL PAIN TO 2-3/10 AT MAX *REDUCE EDEMA Lt ANKLE *IMPROVE PROPRIOCEPTION Lt LE *IMPROVE AROM/ PROM Lt ANKLE AND Lt HS/ HHIP ROTAT FLEXIB *INITIATE HEP Correction Goals: *Pt INDEP W HEP AND SELF-SX MGMT *Pt RESUME REG ADLs AND GRADUAL RETURN TO THE GYM-> HIKING FLAT TERRAIN-> GRAD INCR *IMPROVED LEFI (AT EVAL 40/80) *Pt DEMON ASYMPTOMATIC/ WFL SQUAT MECH/ RANGE (W/O VALGUS COLLAPSE OR Wt SHIFT Rt) *WFL Lt ANKLE ROM AND LEs / HIP FLEXIB Treatment Plan: Modalities to reduce pain, spasms and effusion. Manual therapy to restore motion and function. Therapeutic exercise to improve strength and flexibility. Neuromuscular re-education for posture and balance. Therapeutic activities to return to functional activities of daily living. Electronically signed by: SIERRA GONZALEZ PT Please sign and return to therapist. Thank you for your referral.
--- NOTE | 2024-09-08 11:39 | MHC.PT.DC ---
[facility] [place] Office [place] Office [place] Office [address] Devaughn [place] [address] [phone] F: [phone] F: [phone] F: [phone] F: [phone] Physical Therapy Discharge Report Diagnosis: LEFT ANKLE SPRAIN Date of Surgery: Date of Evaluation: 06/19/24 Date of Discharge: 09/08/24 Treatments to Date: 14 Cancellations to Date: 2 No Shows to Date: 1 Discharge Status: Achieved Goals Improved Function Independent with HEP Discharge Summary: BUBBA HAS PROGRESSED WELL IN PT- WE DISCUSSED EASING BACK INTO HIKING (2 MILES VS 10 MILES) AND GRADUALLY INCR HIS ACTIVITY LEVEL.. HE PERF HIGH LEVEL EXER IN PT W INCR MM EFFORT, BUT DENIED ANKLE PAIN- HE MET HIS PT GOALS AT THIS TIME, MORE EFFICIENT GAIT , AND IS D/C W HIS HEP - A FORMAL REASSESSMENT WAS NOT PERF HE DID NOT ATTEND HIS LAST SCHED PT APPT. Electronically signed by: SIERRA GONZALEZ,PT Please sign and return to therapist. Thank you for your referral.
== END 2024-09-08 11:38 | disposition home or self-care (01) ==
LOC: HO.PT 14:00
PROVIDERS: PCP Internal Medicine; Visit Provider Physician Assistant
DX: S93.402D Sprain of unspecified ligament of left ankle, subsequent encounter (principal)
CPT/HCPCS: 97110; 97140; 97162; 97530

== ENCOUNTER 2025-02-11 14:23 | Emergency (ER) | payer OTHER, SELFPAY ==
[2025-02-11 14:34] VITALS: BP 122/62; PULSE 88; RESP 18; TEMP 36.6; O2SAT 98; BMI 24.0
--- NOTE | 2025-02-11 14:35 | ED_ITS ---
HPI - General Adult General Chief complaint: General Medical Stated complaint: withdrawal Time Seen by Provider: 02/11/25 16:21 History of Present Illness HPI narrative: Author / Clinician: Hira Skaggs MD Chief Complaint Irritability and episodes of panic after recent nightly use of Kava supplement. History of Present Illness Patient is a previously healthy adult male who has been using Kava (medium-grind powder, 30 g strained in 8 oz water) for approximately six months. Initial use was intermittent (1-2 times/month), but over the past 1?1.5 weeks he has been taking it nightly. After a dose last night he awoke very irritable and experienced two panic attacks characterized by rapid breathing, tachycardia, pounding heart, abdominal discomfort, pallor, and diaphoresis. He denies any specific triggers. He also reports a headache this morning localized to the left posterior head with a sensation of head swelling. No associated trauma. Additional symptoms: chronic lower back pain for ~10 years (unchanged). No shortness of breath, cough, fever, swelling, or rash. No daily prescription medications. No other new supplements or exposures. Past substance use (alcohol, smoking, oxycodone) prior to 2018; none since. No current tobacco, vaping, or recreational marijuana use. --- Review of Systems - General: Irritability this morning; denies fever. - HEENT: Headache left posterior; denies vision changes. - Respiratory: No shortness of breath, no cough. - Cardiovascular: Reports tachycardia and pounding heart during panic episodes. - GI: Reports abdominal discomfort during panic episode; no nausea or vomiting. - Skin: Reports pallor and diaphoresis during episode; denies rash or swelling. - Neuro/Psych: Panic attacks with anxiety; no tremor. --- Physical Examination Vital Signs: Not available at time of documentation. Measure Value ------- ----- Physical Exam: Gen: Alert, well-appearing, in no acute distress. Not ill or toxic. Head: Atraumatic. Eyes: Pupils 5 mm, equal, reactive; conjunctiva normal. ENT: Moist mucous membranes, no pallor. Neck: Supple, no lymphadenopathy. Skin: Warm, dry; no rash, swelling, or diaphoresis observed. Respiratory: Breathing comfortably; clear to auscultation bilaterally, symmetric chest expansion, no wheezes/rales/rhonchi. Cardiovascular: Regular rate and rhythm, no murmurs or rubs; extremities warm, well perfused, no edema. Abdominal: Soft, non-distended, non-tender, no masses or organomegaly. Neuro: Alert; gross motor intact; no tremor. No obvious toxidrome. Psych: Calm, cooperative. --- Medical Decision Making Preliminary Differential: - Kava-related adverse effect / toxicity - Anxiety / panic disorder exacerbation - Thyrotoxicosis - Cardiac arrhythmia Comprehensive metabolic panel, liver function tests, CBC, and electrolytes reviewed ? all within normal limits. No evidence of hepatic injury (concern given Kava use). Plan to obtain ECG and thyroid stimulating hormone level for further evaluation of tachycardia and panic episodes. Literature review (toxicology) in progress regarding Kava (Piper methysticum) adverse effects. This is a low-acuity presentation without systemic toxicity. No critical care time required. Literature review suggests most calm and adverse effects related to liver dysfunction which he does not have. There is a suggestion of possible increasing doses with anxiety insomnia and other symptoms that the patient is experiencing. I have advised him to stop using this supplement for now provided hydroxyzine recommended PCP follow up possible psychology and/or psychiatry referral. He is calm right now no psychosis no acute toxidrome or withdrawal syndrome present reassuring lab work patient was reassured --- Plan: Initial Plan - Obtain ECG and send TSH. - Continue monitoring while in ED; reassess once ECG and additional labs resulted. - Re-evaluate need for further toxicology consultation pending literature review. Independent Data Analysis/Interpretation: - Labs: Independently reviewed CBC, CMP/LFTs ? all WNL. - Imaging: N/A - ECG: Sinus bradycardia rate 55 QTC 361 no acute ischemic changes. Concave upward ST elevation with J-point notching probably benign early repolarization only in V2 V3. - Additional Complexity: - Independent review of external records: none available Risk: Low: Acute uncomplicated presentation without end-organ dysfunction. --- ED Course, Updates Patient remains stable; labs WNL; awaiting ECG and TSH. Disposition Pending ECG/TSH results and reassessment. Critical Care: [N/A] Past Medical History Chronic low back pain (~10 years). Otherwise no chronic medical conditions. Past Surgical History Tonsillectomy (childhood). Medications No daily prescription medications. Nightly Kava supplement (medium grind powder, 30 g). Allergies No known drug allergies. Social History - Former alcohol, tobacco, and oxycodone use (ceased 2018). - No current tobacco, vaping, recreational marijuana, or other drug use. Family History Not discussed. Related Data Previous Rx's ?Medication ?Instructions ?Recorded ibuprofen 600 mg tablet 600 mg PO Q8H PRN fever or p ain 05/03/24 #10 tabs hydroxyzine HCl 25 mg tablet 25 mg PO BID PRN anxiety #7 tabs 02/11/25 Allergies Allergy/AdvReac Type Severity Reaction Status Date / Time methylphenidate (From AdvReac Unknown Verified 02/11/25 14:37 Concerta) [facility], [facility] Past Medical History Surgical History History of tonsillectomy Social History Social History Alcohol intake: never Advance Directives: No Advance Directives Information Provided: No Do you have a plan to hurt others: No Plan Current occupational status: employed 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 Full HPI, ROS, assessment and treatment plan per primary provider in the Main ED. Hx: 29 yo M here for eval of shakiness, confusion, panic attacks, mood swings, sweats x this week. reports concern he is withdrawing from an herbal supplement called Kava. began using this 6 mo ago, has been decreasing his usage to nightly over the last week, no having symptoms. Plan: labs, viral swabs Medications Administered Discontinued Medications Generic Name Dose Route Start Last Admin Trade Name Freq PRN Reason Stop Dose Admin Diazepam 2 mg 02/11/25 17:36 02/11/25 18:02 Diazepam 2 Mg Tablet PO 02/11/25 17:37 Not Given ONCE ONE Medical Decision Making Lab Data 02/11/25 15:18 02/11/25 15:18 Labs: Lab Results 02/11/25 Range/Units 15:18 WBC 7.4 (4.8-10.8) X10*3/uL RBC 5.51 (4.60-5.80) X10*6/uL Hgb 14.7 (14.0-18.0) g/dl Hct 44.0 (42.0-52.0) % MCV 79.9 L (80.0-98.0) fL MCH 26.7 L (27.0-33.0) pg MCHC 33.4 (31.0-36.0) g/dl RDW 12.7 (11.0-16.0) % Plt Count 259 (160-400) X10*3/uL MPV 10.0 (9.4-12.4) fL Immature Gran % (Auto) 0.3 (0.0-0.4) % Neut % (Auto) 77.6 H (45-73) % Lymph % (Auto) 14.3 L (20-40) % [place] % (Auto) 7.0 (2-11) % Eos % (Auto) 0.5 (0-4) % Baso % (Auto) 0.3 (0-2) % Lymph # (Auto) 1.1 L (1.2-4.9) X10*3/uL [place] # (Auto) 0.5 (0.1-1.2) X10*3/uL Eos # (Auto) 0.0 (0.0-0.4) X10*3/uL Baso # (Auto) 0.0 (0.0-0.2) X10*3/uL Abs Immat Gran (auto) 0.02 (0.00-0.03) X10*3/uL Absolute Neuts (auto) 5.8 (2.0-8.3) x10*3/uL Absolute Nucleated RBC 0.000 (0.0-0.012) X10*3/uL Nucleated RBC % (auto) 0.0 (0.0-0.2) /100WBC Sodium 141 (135-145) mmol/L Potassium 4.0 (3.3-5.1) mmol/L Chloride 106 (96-108) mmol/L Carbon Dioxide 28 (22-29) mmol/L Anion Gap 11 L (12-20) BUN 12 (9-16) mg/dL Creatinine 0.88 (0.5-1.4) mg/dL Estim Creat Clear Calc 117.6 Estimated GFR > 60 Random Glucose 103 (60-115) mg/dL Calcium 9.7 (8.4-10.2) mg/dL Magnesium 2.0 (1.6-2.6) mg/dL Total Bilirubin 0.2 (0.0-1.0) mg/dL AST 20 (5-37) U/L ALT 19 (0-40) U/L Alkaline Phosphatase 85 (39-117) U/L Total Protein 6.8 (6.5-8.0) g/dL Albumin 4.7 (3.5-5.0) g/dL TSH 1.67 (0.32-4.0) uIU/mL Influenza Type A (PCR) NEGATIVE (Negative) Influenza Type B (PCR) NEGATIVE (Negative) RSV RNA Qual (PCR) NEGATIVE (Negative) SARS-CoV-2 RNA (RT-PCR) NEGATIVE (Negative) Discharge Plan Discharge Clinical Impression: Takes dietary supplements Patient Disposition: Home, Self-Care Instructions: Anxiety (ED) Additional Instructions: We did a screening lab work including blood counts electrolytes kidney and liver function tests all of which were reassuring. Your EKG is also reassuring. You had normal vital signs no significant signs on physical exam of severe withdrawal syndrome or toxic effects of the supplement you have been taking. Our research suggests the main and most common adverse effect of supplementation with cava is liver damage which we do not see evidence of. High doses can cause anxiety him maybe attributing to some of your anxiety symptoms. We provided you with oral Valium in the emergency department and a mild anxiolysis medicine. We strongly recommend he follow up with primary doctor as you may need further evaluation or referral to Psychology or Psychiatry. Brief Summary: Kava is used for its calming and anxiolytic effects, but adverse effects can include liver toxicity, gastrointestinal upset, headache, dizziness, and rarely, allergic reactions or worsening mood symptoms. Patients should return for evaluation if they develop jaundice, dark urine, persistent abdominal pain, severe headache, confusion, or worsening psychiatric symptoms. Hydroxyzine may be appropriate for acute panic episodes when rapid, short-term relief of anxiety is needed and there are no contraindications; it is not a first-line long-term treatment for panic disorder. Prescriptions: New hydroxyzine HCl 25 mg tablet 25 mg PO BID PRN (Reason: anxiety) Qty: 7 0RF No Action ibuprofen 600 mg tablet 600 mg PO Q8H PRN (Reason: fever or pain) Qty: 10 0RF Interventions: ED Discharge Assessment Last Done: 02/11/25 18:04 Discharge Date/Time: 02/11/25 18:05 Print Language: Portuguese
[2025-02-11 15:46] LABS: MANUAL DIFF FLAG NO
[2025-02-11 15:49] LABS: Hematocrit 44.0 % (42.0-52.0); Hemoglobin 14.7 g/dl (14.0-18.0); Imm Gran Abs Auto 0.02 X10*3/uL (0.00-0.03); Imm Gran Pct Auto 0.3 % (0.0-0.4); Lymphocytes Absolute Auto 1.1 X10*3/uL (1.2-4.9); Mean Corpuscular HGB Conc 33.4 g/dl (31.0-36.0); Mean Corpuscular Hemoglobin 26.7 pg (27.0-33.0); Mean Corpuscular Volume 79.9 fL (80.0-98.0); NRBC Abs Auto 0.000 X10*3/uL (0.0-0.012); NRBC Pct Auto 0.0 /100WBC (0.0-0.2); Platelet Count 259 X10*3/uL (160-400); Red Blood Count 5.51 X10*6/uL (4.60-5.80); White Blood Count 7.4 X10*3/uL (4.8-10.8)
[2025-02-11 16:07] LABS: Alanine Aminotransferase 19 U/L (0-40); Albumin Level 4.7 g/dL (3.5-5.0); Alkaline Phosphatase 85 U/L (39-117); Anion Gap 11 (12-20); Aspartate Amino Transferase 20 U/L (5-37); Blood Urea Nitrogen 12 mg/dL (9-16); Calcium 9.7 mg/dL (8.4-10.2); Carbon Dioxide 28 mmol/L (22-29); Chloride 106 mmol/L (96-108); Creatinine Clr Calc Pharmacy 117.6; Estimated Glomerular Filt Rate > 60; Magnesium 2.0 mg/dL (1.6-2.6); Potassium 4.0 mmol/L (3.3-5.1); Sodium 141 mmol/L (135-145); Total Protein 6.8 g/dL (6.5-8.0)
--- OUTSIDE RECORDS SUMMARY | 2025-02-11 16:22 | XMS_ITS | Encounter Summary ---
Author Organization [employer] Address [address] [place] [address] [address] [place] [address] Care Team Providers Care Technical Services Assistant Name Role Phone Shayla Castillo MD Primary Care Provider + Encounter Details Date Type Department Care Team ([facility] st Contact Info) Description 03/11/2023 Telephone [facility] MEDICINE [address] [place], [place] [phone] Shayla Castillo MD [address] [place], [place] [phone] Social History Tobacco Use Types Packs/Day Years [...] the past 12 months, has t he [employer] oil or water company threatened to shut [...] on filedocumented in this encounter Care Teams Technical Services Assistant Relationship Specialty Start Date End Date Shayla Castillo MD [address] [place] [phone] PCP - General Family Medicine 10/16/18 documented as of this encounter
--- OUTSIDE RECORDS SUMMARY | 2025-02-11 16:22 | XMS_ITS | Encounter Summary ---
Author Organization [employer] Address [address] [place] [id number] Care Team Providers Care Rivet Passer Name Role Phone Shayla Castillo MD Primary Care Provider + Reason for Visit * Reason Onset Date Comments Nurse Triage 03/11/2023 Encounter Details Date Type Department Care Team ([facility] st Contact Info) Description 03/11/2023 Telephone [facility] MEDICINE [address] [place] [address] Shayla Castillo MD [address] [place], [place] [phone] Nurse Triage Social History Tobacco Use Types [...] on filedocumented in this encounter Care Teams Rivet Passer Relationship Specialty Start Date End Date Shayla Castillo MD [address] [place] [phone] PCP - General Family Medicine 10/16/18 documented as of this encounter
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
[2025-02-11 16:26] LABS: Resp Syncy Virus RNA Qual PCR NEGATIVE (Negative); SARS COV2 PCR INHOUSE NEGATIVE (Negative)
--- NOTE | 2025-02-11 17:08 | ECG_ITS ---
Test Reason : PALPITATIONS Blood Pressure : */* mmHG Vent. Rate : 55 BPM Atrial Rate : 55 BPM P-R Int : 130 ms QRS Dur : 96 ms QT Int : 378 ms P-R-T Axes : 69 69 0 degrees QTcB Int : 361 ms Sinus bradycardia Nonspecific ST and T wave abnormality Abnormal ECG When compared with ECG of 11-Jul-2023 22:50, Non-specific change in ST segment in Inferior leads Nonspecific T wave abnormality now evident in Lateral leads Referred By: Hira Skaggs Electronically Signed By: ABY COLBERT MD
[2025-02-11 17:43] LABS: Thyroid Stimulating Hormone 1.67 uIU/mL (0.32-4.0)
[2025-02-11 18:04] VITALS: BP 122/62; PULSE 88; RESP 18; TEMP 36.6; O2SAT 98
== END 2025-02-11 18:05 | disposition home or self-care (01) ==
PROVIDERS: Physician Assistant Medical; Emergency Provider Emergency Medicine; PCP Internal Medicine
DX: F41.0 Panic disorder [episodic paroxysmal anxiety] (principal); R00.0 Tachycardia, unspecified; R10.23 Pelvic and perineal pain bilateral; Z79.899 Other long term (current) drug therapy; Z03.818 Encounter for observation for suspected exposure to other biological agents ruled out
CPT/HCPCS: 80053; 83735; 84443; 85025; 87637; 93005; 99283

== ENCOUNTER → 2025-02-11 17:08 | Outpatient (BNV) | payer OTHER, SELFPAY | PROVIDERS: Emergency Provider Emergency Medicine; PCP Internal Medicine; Visit Provider Internal Medicine Cardiovascular Disease | DX: R00.1 Bradycardia, unspecified (principal) | CPT/HCPCS: 93010 ==